=== PATIENT | female | born 1990 | race Caucasian/White ===

== ENCOUNTER 2016-06-10 12:36 | Emergency (ER) | payer BC, OTHER ==
[2016-06-10 12:46] VITALS: BP 115/78; PULSE 78; RESP 18; TEMP 97.8
[2016-06-10] MEDS ORDERED: HYDROcodone/APAP 5-325MG 1 EACH TAB PO STA (13:17)
--- NOTE | 2016-06-10 13:21 | ED ---
Fall HPI - General Chief Complaint: Fall Stated Complaint: fall Time Seen by Provider: 06/10/16 13:13 Source: patient, RN notes reviewed Mode of arrival: wheelchair - History of Present Illness Initial Comments: Patient is a 25-year-old female presents to the emergency room for evaluation of fall injury. Patient states last night she is taking a shower, slipped and fell and slammed her lower back against the side of the bathtub. Patient states she's having pain in her lower back that radiates to her right side. Patient states she has bruising at the area. Patient states the pain radiates down her leg. Patient denies numbness or tingling down her extremities. Patient denies saddle anesthesia. Patient denies urinary or fecal incontinence. Patient states she's been taking ibuprofen with little relief of symptoms. Patient states the pain is worse whenever she moves. - Related Data Home Medications Medication Instructions Recorded Confirmed Albuterol Inhaler [Ventolin 2 puff INHALATION Q4HR PRN 10/16/13 05/12/14 Inhaler] Ondansetron HCl [Zofran] 8 mg PO Q8HR PRN 10/16/13 05/12/14 Lansoprazole [Prevacid] 1 tab PO DAILY 11/26/13 05/12/14 Previous Rx's Medication Instructions Recorded HYDROcodone/APAP 5-325MG [[place] 1 tab PO Q6HR PRN #12 tab 06/10/16 5-325] Allergies Allergy/AdvReac Type Severity Reaction Status Date / Time azithromycin [From Zithromax] Allergy Dyspnea Verified 06/10/16 12:46 Review of Systems ROS Statement: Those systems with pertinent positive or pertinent negative responses have been documented in the HPI. ROS Other: All systems not noted in ROS Statement are negative. Past Medical History Past Medical History: No Reported History Additional Past Medical History / Comment(s): hyperemesis History of Any Multi-Drug Resistant Organisms: None Reported Past Surgical History: Appendectomy, Cholecystectomy, Tonsillectomy Past Anesthesia/Blood Transfusion Reactions: No Reported Reaction Past Psychological History: No Psychological Hx Reported Smoking Status: Never smoker Past Alcohol Use History: Occasional Past Drug Use History: None Reported General Exam - General Exam Comments Initial Comments: Laying in exam room, no acute distress. Limitations: no limitations General appearance: alert, in no apparent distress Head exam: Present: atraumatic, normocephalic, normal inspection Eye exam: Present: normal appearance ENT exam: Present: normal exam Neck exam: Present: normal inspection Respiratory exam: Present: normal lung sounds bilaterally. Absent: respiratory distress Cardiovascular Exam: Present: regular rate, normal rhythm, normal heart sounds Extremities exam: Present: normal inspection Back exam: Present: tenderness (Tenderness and bruising over her right side lower back), vertebral tenderness (Lumbosacral spine and coccyx bone.) Neurological exam: Present: alert, oriented X3, CN II-XII intact Psychiatric exam: Present: normal affect, normal mood Skin exam: Present: warm, dry, intact, normal color. Absent: rash Course Vital Signs 06/10/16 12:42 Temperature 97.8 F Pulse Rate 78 Respiratory 18 Rate Blood Pressure 115/78 O2 Sat by Pulse 98 Oximetry Medical Decision Making - Medical Decision Making Patient is a 25-year-old female presents emergency room for evaluation of fall injury. Patient complaining of right-sided low back pain and bruising. X-ray' s showed no acute findings. Patient was sent home with pain medications and advised to follow-up with primary care provider if symptoms are not improving in 7-10 days. Patient states she understands everything that was discussed with her. Return parameters discussed. Case discussed with Dr. Dunham. - Radiology Data Radiology results: report reviewed, image reviewed Disposition Clinical Impression: Fall, Contusion of lower back Disposition: HOME SELF-CARE Condition: Good Instructions: Acute Low Back Pain (ED) Additional Instructions: Ice on and off for 10-15 minutes for the next 24-48 hours. Take ibuprofen as needed for pain. Take [place] as needed for severe pain. Please follow-up with primary care provider symptoms are not improving in 7-10 days. If new symptoms develop or symptoms worsen, please return to the ER. Prescriptions: HYDROcodone/APAP 5-325MG [[place] 5-325] 1 tab PO Q6HR PRN #12 tab PRN Reason: Pain Referrals: Margi Tang MD [Primary Care Provider] - 1-2 days Time of Disposition: 14:05
--- NOTE | 2016-06-10 13:49 | XR ---
EXAMINATION TYPE: XR sacrum coccyx DATE OF EXAM ORDERED: 06/10/2016 1:34 PM HISTORY: Pain. COMPARISON: None. FINDINGS: A surgical clip projects over the left hemipelvis. No fracture, dislocation or other acute osseous lesion is seen. There are multiple phleboliths within the pelvis. IMPRESSION: NO ACUTE OSSEOUS LESION.
--- NOTE | 2016-06-10 13:50 | XR ---
EXAMINATION TYPE: XR lumbosacral spine min 4V DATE OF EXAM ORDERED: 06/10/2016 1:34 PM HISTORY: Pain. COMPARISON: None. FINDINGS: Vertebral body height and alignment are maintained. There is no spondylolysis or spondylol isthesis. There is no significant degenerative change. The facets are unremarkable. The pedicles are intact. Note is made of a previous cholecystectomy. IMPRESSION: NORMAL LUMBAR SPINE.
== END 2016-06-10 14:11 | disposition home or self-care (01) ==
LOC: EC 12:36
DX: S30.0XXA Contusion of lower back and pelvis, initial encounter (principal); Z79.899 Other long term (current) drug therapy; Z88.1 Allergy status to other antibiotic agents; W01.0XXA Fall on same level from slipping, tripping and stumbling without subsequent striking against object, initial encounter; Y92.009 Unspecified place in unspecified non-institutional (private) residence as the place of occurrence of the external cause
CPT/HCPCS: 72110; 72220; 99284

== ENCOUNTER 2016-08-09 10:08 | Emergency (ER) | payer OTHER ==
[2016-08-09 10:18] VITALS: RESP 20
--- NOTE | 2016-08-09 10:32 | ED ---
Lower Extremity Injury HPI - General Chief Complaint: Extremity Injury, Lower Stated Complaint: Foot Injury Time Seen by Provider: 08/09/16 10:19 Source: patient, RN notes reviewed Mode of arrival: wheelchair Limitations: no limitations - History of Present Illness Initial Comments: 25-year-old female presents to the emergency department with a chief complaint of right ankle pain. Patient stepped out of her car and rolled her right ankle. Patient states she walked around the park the rest of the day. Patient is smiling she woke up she had pain along the lateral aspect of the ankle. Patient states that she was concerned due to the pain so she thought that she should be evaluated. Patient states at rest the pain is bearable walking seems to make it worse. Patient denies any history of injury to this ankle in the past. Patient denies any recent fever, chills, shortness of breath, chest pain, back pain, abdominal pain, nausea vomiting, numbness or tingling, dysuria or hematuria, constipation or diarrhea, headaches or visual changes, or any other current symptoms. - Related Data Home Medications Medication Instructions Recorded Confirmed Albuterol Inhaler [Ventolin 2 puff INHALATION Q4HR PRN 10/16/13 08/09/16 Inhaler] Multivitamin/Iron/Folic Acid 1 tab PO DAILY 08/09/16 08/09/16 [[place] Tablet] Allergies Allergy/AdvReac Type Severity Reaction Status Date / Time azithromycin [From Zithromax] AdvReac Dyspnea Verified 08/09/16 10:35 Review of Systems ROS Statement: Those systems with pertinent positive or pertinent negative responses have been documented in the HPI. ROS Other: All systems not noted in ROS Statement are negative. Past Medical History Past Medical History: No Reported History Additional Past Medical History / Comment(s): hyperemesis History of Any Multi-Drug Resistant Organisms: None Reported Past Surgical History: Appendectomy, Cholecystectomy, Tonsillectomy Past Anesthesia/Blood Transfusion Reactions: No Reported Reaction Past Psychological History: No Psychological Hx Reported Smoking Status: Never smoker Past Alcohol Use History: Occasional Past Drug Use History: None Reported General Exam - General Exam Comments Initial Comments: General: The patient is awake and alert, in no distress, and does not appear acutely ill. Neck: The neck is supple, there is no tenderness. Cardiovascular: There is a regular rate and rhythm. No murmur, rub or gallop is appreciated. Respiratory: Lungs are clear to auscultation, respirations are non-labored, breath sounds are equal. No wheezes, stridor, rales, or rhonchi. Musculoskeletal: sensation intact. 2+ pulses throughout Right lower extremity. full Range of motion of right knee and right ankle. Patient does have some tenderness over the lateral aspect of the right ankle. 5 out of 5 muscle strength testing throughout. No proximal tib-fib tenderness. Neurological: CN II-XII intact, There are no obvious motor or sensory deficits. Coordination appears grossly intact. Speech is normal. Skin: Skin is warm and dry and no rashes or lesions are noted. Psychiatric: Normal mood and affect. Limitations: no limitations Course Vital Signs 08/09/16 10:15 Temperature 98 F Pulse Rate 82 Respiratory 20 Rate Blood Pressure 114/66 O2 Sat by Pulse 99 Oximetry Medical Decision Making - Medical Decision Making 25-year-old female presents emergency department chief complaint of right ankle sprain. This time patient will undergo a right ankle x-ray. This time x-rays reviewed and negative. This time we discussed Motrin Tylenol was discussed ice. We discussed return plan was on the patient's questions. They state Joseph they are in agreement plan. They will be discharged. - Radiology Data Radiology results: image reviewed Interpreted by me: Interpreted by me: Right ankle xray: 3 view, no fracture, no dislocation, no bony lesions, no foreign bodies, no soft tissue damage. Waiting official radiology read. Disposition Clinical Impression: Right ankle sprain Disposition: HOME SELF-CARE Condition: Stable Instructions: Ankle Sprain (ED) Additional Instructions: Please use medication as discussed. Please follow up with family doctor if symptoms have not improved over the next two days. Please return to the emergency room if your symptoms increase or worsen or for any other concerns. Referrals: Margi Tang MD [Primary Care Provider] - 1-2 days
--- NOTE | 2016-08-09 11:20 | XR ---
EXAMINATION TYPE: XR ankle complete RT DATE OF EXAM: 08/09/2016 COMPARISON: NONE HISTORY: Pain after trauma TECHNIQUE: 3 views FINDINGS: The mortise is intact. The bones and joints and soft tissues are unremarkable. IMPRESSION: Negative examination.
[2016-08-09 11:25] VITALS: BP 118/68; PULSE 78; TEMP 97.8
== END 2016-08-09 11:20 | disposition home or self-care (01) ==
LOC: EC 10:08
DX: S93.401A Sprain of unspecified ligament of right ankle, initial encounter (principal); Z88.1 Allergy status to other antibiotic agents; X50.1XXA Overexertion from prolonged static or awkward postures, initial encounter
CPT/HCPCS: 99283

== ENCOUNTER 2016-12-03 20:29 | Emergency (ER) | payer OTHER ==
--- NOTE | 2016-12-03 21:10 | ED ---
Abdominal Pain HPI - General Chief Complaint: Abdominal Pain Stated Complaint: vaginal bleeding/abdominal pain-11 wks preg Time Seen by Provider: 12/03/16 20:55 Source: patient Mode of arrival: ambulatory Limitations: no limitations - History of Present Illness Initial Comments: This patient is a 26-year-old woman who believes that she is about 11 weeks based from her last menstrual period. She states that since this morning she has had lower abdominal cramping and then a little later in the day started having some spotting. The pelvic cramping became more intense this evening to 3 hours ago. Patient denies fever or chills. She is not having chest pain, dyspnea, palpitations or syncope. She did feel lightheaded after standing earlier today. Patient denies any nausea or vomiting or any change in bowel movements. She has not had any urinary changes. There is no leg pain or swelling. MD Complaint: abdominal pain Onset/Timin -: days(s) Location: suprapubic Radiation: none Migration to: no migration Severity: moderate Quality: cramping Consistency: constant Improves With: nothing Worsens With: nothing - Related Data LMP Date: 09/19/16 LMP (females 10-50): 3 months Patient : Yes Home Medications Medication Instructions Recorded Confirmed Albuterol Inhaler [Ventolin 2 puff INHALATION Q4HR PRN 10/16/13 08/09/16 Inhaler] Multivitamin/Iron/Folic Acid 1 tab PO DAILY 08/09/16 08/09/16 [[place] Women Tablet] Previous Rx's Medication Instructions Recorded Amoxicillin 500 mg PO Q8H #21 capsule 12/03/16 Allergies Allergy/AdvReac Type Severity Reaction Status Date / Time azithromycin [From Zithromax] AdvReac Dyspnea Verified 12/03/16 20:44 Review of Systems ROS Statement: Those systems with pertinent positive or pertinent negative responses have been documented in the HPI. ROS Other: All systems not noted in ROS Statement are negative. Constitutional: Denies: fever, chills Eyes: Denies: vision change Respiratory: Denies: cough, dyspnea Cardiovascular: Denies: chest pain, palpitations, edema, syncope Gastrointestinal: Reports: as per HPI, abdominal pain. Denies: nausea, vomiting , diarrhea, constipation, melena, hematochezia Genitourinary: Reports: abnormal menses. Denies: dysuria, hematuria, discharge Musculoskeletal: Denies: back pain Skin: Denies: rash Neurological: Denies: headache, weakness, numbness Hematological/Lymphatic: Denies: easy bleeding Past Medical History Past Medical History: No Reported History Additional Past Medical History / Comment(s): hyperemesis History of Any Multi-Drug Resistant Organisms: None Reported Past Surgical History: Appendectomy, Cholecystectomy, Tonsillectomy Past Anesthesia/Blood Transfusion Reactions: No Reported Reaction Past Psychological History: No Psychological Hx Reported Smoking Status: Never smoker Past Alcohol Use History: Occasional Past Drug Use History: None Reported General Exam Limitations: no limitations General appearance: alert, in no apparent distress Head exam: Present: atraumatic, normocephalic Eye exam: Present: normal appearance. Absent: scleral icterus, conjunctival injection ENT exam: Present: normal oropharynx Neck exam: Present: normal inspection Respiratory exam: Present: normal lung sounds bilaterally. Absent: respiratory distress, wheezes, rales, rhonchi, stridor Cardiovascular Exam: Present: regular rate, normal rhythm, normal heart sounds GI/Abdominal exam: Present: soft. Absent: distended, tenderness, guarding, rebound, mass, pulsatile mass, hernia Extremities exam: Present: normal inspection, normal capillary refill. Absent: pedal edema, calf tenderness Back exam: Present: normal inspection. Absent: CVA tenderness (R), CVA tenderness (L) Neurological exam: Present: alert Skin exam: Present: warm, dry, intact, normal color. Absent: rash Course Vital Signs 12/03/16 12/03/16 20:42 22:50 Temperature 98.3 F 98.2 F Pulse Rate 87 79 Respiratory 20 16 Rate Blood Pressure 118/67 143/63 O2 Sat by Pulse 99 98 Oximetry Medical Decision Making - Lab Data Result diagrams: 12/03/16 21:24 Lab Results 12/03/16 12/03/16 12/03/16 Range/Units 21:05 21:05 21:24 WBC (3.8-10.6) k/uL RBC (3.80-5.40) m/uL Hgb (11.4-16.0) gm/dL Hct (34.0-46.0) % MCV (80.0-100.0) fL MCH (25.0-35.0) pg MCHC (31.0-37.0) g/dL RDW (11.5-15.5) % Plt Count (150-450) k/uL Neutrophils % % Lymphocytes % % Monocytes % % Eosinophils % % Basophils % % Neutrophils # (1.3-7.7) k/uL Lymphocytes # (1.0-4.8) k/uL Monocytes # (0-1.0) k/uL Eosinophils # (0-0.7) k/uL Basophils # (0-0.2) k/uL HCG, Quant mIU/mL Urine Color Yellow Urine Appearance Cloudy H (Clear) Urine pH 7.0 (5.0-8.0) Ur Specific [place] 1.015 (1.001-1.035) Urine Protein Negative (Negative) Urine Glucose (UA) Negative (Negative) Urine Ketones Negative (Negative) Urine Blood Negative (Negative) Urine Nitrite Negative (Negative) Urine Bilirubin Negative (Negative) Urine Urobilinogen <2.0 (<2.0) mg/dL Ur Leukocyte Esterase Trace H (Negative) Urine WBC 7 H (0-5) /hpf Ur Squamous Epith Cells 8 H (0-4) /hpf Amorphous Sediment Rare H (None) /hpf Urine Bacteria Rare H (None) /hpf Urine Mucus Rare H (None) /hpf Urine HCG, Qual Detected (Not Detectd) Blood Type A Negative Blood Type Recheck No 12/03/16 12/03/16 Range/Units 21:24 21:24 WBC 7.9 (3.8-10.6) k/uL RBC 3.70 L (3.80-5.40) m/uL Hgb 11.6 (11.4-16.0) gm/dL Hct 34.5 (34.0-46.0) % MCV 93.3 (80.0-100.0) fL MCH 31.2 (25.0-35.0) pg MCHC 33.5 (31.0-37.0) g/dL RDW 13.0 (11.5-15.5) % Plt Count 251 (150-450) k/uL Neutrophils % 68 % Lymphocytes % 24 % Monocytes % 6 % Eosinophils % 1 % Basophils % 0 % Neutrophils # 5.3 (1.3-7.7) k/uL Lymphocytes # 1.9 (1.0-4.8) k/uL Monocytes # 0.5 (0-1.0) k/uL Eosinophils # 0.1 (0-0.7) k/uL Basophils # 0.0 (0-0.2) k/uL HCG, Quant 915808.0 mIU/mL Urine Color Urine Appearance (Clear) Urine pH (5.0-8.0) Ur Specific [place] (1.001-1.035) Urine Protein (Negative) Urine Glucose (UA) (Negative) Urine Ketones (Negative) Urine Blood (Negative) Urine Nitrite (Negative) Urine Bilirubin (Negative) Urine Urobilinogen (<2.0) mg/dL Ur Leukocyte Esterase (Negative) Urine WBC (0-5) /hpf Ur Squamous Epith Cells (0-4) /hpf Amorphous Sediment (None) /hpf Urine Bacteria (None) /hpf Urine Mucus (None) /hpf Urine HCG, Qual (Not Detectd) Blood Type Blood Type Recheck Disposition Clinical Impression: Subchorionic hematoma in first trimester, Bacteriuria Disposition: HOME SELF-CARE Condition: Good Instructions: Subchorionic Hemorrhage (ED), Threatened Miscarriage (ED) Prescriptions: Amoxicillin 500 mg PO Q8H #21 capsule Referrals: Margi Tang MD [Primary Care Provider] - 1-2 days Nikunj Nielsen MD [STAFF PHYSICIAN] - 1-2 days
[2016-12-03 21:21] LABS: Amorphous Sediment,Urine Rare /hpf; Appearance,Urine Cloudy (Clear); Bacteria,Urine Rare /hpf; Bilirubin,Urine Negative (Negative); Glucose,Urine (UA) Negative (Negative); Ketones,Urine Negative (Negative); Leukocyte Esterase,Urine Trace (Negative); Mucus,Urine Rare /hpf; Nitrite,Urine Negative (Negative); Particle Count 1884; Protein,Urine Negative (Negative); Specific Gravity,Urine 1.015 (1.001-1.035); Squamous Epithelial Cell,Urine 8 /hpf (0-4); UA Billing (MACRO vs. MICRO) MICRO; Urobilinogen,Urine <2.0 mg/dL (<2.0); WBC,Urine 7 /hpf (0-5)
[2016-12-03 21:46] LABS: Basophils % (A) 0 %; CH 30.8; CHCM 33.1; Eosinophils # (A) 0.1 k/uL (0-0.7); Eosinophils % (A) 1 %; HCT 34.5 % (34.0-46.0); HDW 2.13; HGB 11.6 gm/dL (11.4-16.0); Luc # (Auto) 0.13; Luc % (Auto) 2; Lymphocytes # (A) 1.9 k/uL (1.0-4.8); Lymphocytes % (A) 24 %; MCH 31.2 pg (25.0-35.0); MCHC 33.5 g/dL (31.0-37.0); MCV 93.3 fL (80.0-100.0); Mean Platelet Volume 6.4; Monocytes # (A) 0.5 k/uL (0-1.0); Monocytes % (A) 6 %; Neutrophils # (A) 5.3 k/uL (1.3-7.7); Neutrophils % (A) 68 %; WBC 7.9 k/uL (3.8-10.6); WBC (Perox) 7.93
[2016-12-03] MEDS ORDERED: SODIUM CHLORIDE 0.9% 500 ML IV STA (22:50)
[2016-12-03 22:51] VITALS: BP 143/63; PULSE 79; RESP 16; TEMP 98.2
[2016-12-03] MEDS ORDERED: PYRIDOXINE 100 MG/ML 1 ML VIAL IVP STA (22:51)
--- NOTE | 2016-12-03 23:20 | US ---
US OB <= 14 wk fetus DATE OF EXAM: 12/03/2016 COMPARISON: NONE CLINICAL HISTORY: spotting with low abdominal cramping. . Date of LMP: 09/19/2016. Beta HcG (if available): detected EXAM PERFORMED: Transabdominal (TA) pelvic ultrasound was performed. FINDINGS: GESTATIONAL AGE / DATING Physician Established: Not yet established Dates by LMP: (10weeks/5 days) EDC: 06/26/2017 Dates by First Scan: No previous this is first scan Dates by Current Scan for: (10weeks/5 days) EDC: 06/26/2017 MATERNAL ANATOMY Uterus: Measures 15.4 x 8.3 x 9.7 cm. Anteverted. There appears to be hypoechoic area lateral to gest sac, measuring approximately 4.7 x 1.0 x 0.6 cm, possible moderate in size subchorionic hemorrhage versus implantation. Right Ovary: Measures 2.7 x 1.5 x 1.2 cm. Appears wnl Left Ovary: Measures 3.8 x 2.9 x 2.5 cm. Hypoechoic area with peripheral color flow noted measuring approximately 2.2 x 1.9 x 1.9 cm likely corpus luteal cyst Post CDS / Adnexa: Appears wnl Presence of free fluid: No GESTATION / SURVEY CRL: 3.85 cm (10weeks/5 days) Yolk Sac (normal less than 6mm): 0.3 cm Heart Rate: 161 bpm Rhythm: Normal IUP: Viable IUP IMPRESSION: Single IUP _10_ weeks _5_ days by measurements. heart tones _161_ bpm. Hypoechoic area lateral to gest sac, measuring approximately 4.7 x 1.0 x 0.6 cm, possible moderate in size subchorionic hemorrhage versus implantation. Serial trending beta hCG values along with short-term interval obstetrical ultrasound is recommended for follow-up.
== END 2016-12-03 23:43 | disposition home or self-care (01) ==
LOC: EC 20:29
DX: O20.9 Hemorrhage in early pregnancy, unspecified (principal); O99.89 Other specified diseases and conditions complicating pregnancy, childbirth and the puerperium; R82.71 Bacteriuria; Z3A.11 11 weeks gestation of pregnancy; Z90.49 Acquired absence of other specified parts of digestive tract; Z88.1 Allergy status to other antibiotic agents; Z79.899 Other long term (current) drug therapy
CPT/HCPCS: 99284 ×2; 96374 ×2; 36415; 86900; 86901; 85025; 81001; 81025; 84702; 76801; J3415

== ENCOUNTER 2017-02-16 03:51 | Outpatient (CLI) | payer OTHER ==
[2017-02-16] MEDS ORDERED: ONDANSETRON 4 MG/2 ML VIAL IVP PRN (04:10)
[2017-02-16] MEDS ORDERED: LACTATED RINGERS 1,000 ML IV SCH ×2 (04:15)
[2017-02-16 04:24] LABS: Basophils % (A) 0 %; Eosinophils % (A) 1 %; HCT 36.8 % (34.0-46.0); HGB 12.2 gm/dL (11.4-16.0); Lymphocytes # (A) 0.4 k/uL (1.0-4.8); Lymphocytes % (A) 5 %; MCH 30.3 pg (25.0-35.0); MCHC 33.1 g/dL (31.0-37.0); MCV 91.5 fL (80.0-100.0); Mean Platelet Volume 6.6; Monocytes # (A) 0.4 k/uL (0-1.0); Monocytes % (A) 4 %; Neutrophils # (A) 7.2 k/uL (1.3-7.7); Neutrophils % (A) 89 %; Platelet Count 205 k/uL (150-450); RBC 4.02 m/uL (3.80-5.40); RDW 13.2 % (11.5-15.5); WBC 8.1 k/uL (3.8-10.6)
[2017-02-16 04:27] VITALS: BP 121/68; PULSE 102; RESP 16; TEMP 98.1
[2017-02-16 04:35] LABS: Appearance,Urine Turbid (Clear); Bilirubin,Urine Negative (Negative); Blood,Urine Negative (Negative); Color,Urine Dark Yellow; Glucose,Urine (UA) Trace (Negative); Ketones,Urine 1+ (Negative); Leukocyte Esterase,Urine Moderate (Negative); Mucus,Urine Many /hpf; Nitrite,Urine Negative (Negative); Protein,Urine 2+ (Negative); RBC,Urine 4 /hpf (0-5); Specific Gravity,Urine 1.025 (1.001-1.035); Squamous Epithelial Cell,Urine 16 /hpf (0-4); Urobilinogen,Urine <2.0 mg/dL (<2.0); WBC,Urine 9 /hpf (0-5)
--- NOTE | 2017-03-05 11:22 | P.MSEPDOC ---
Presenting Problems - Arrival Data Date of Arrival on Unit: 02/16/17 Time of Arrival on Unit: 03:51 Mode of Transport: Wheelchair - Complaint OB-Reason for Admission/Chief Complaint: Acute Nausea/Vomiting Medical History - Information : 6 Para: 3 Term: 2 : 1 Abortions: Spontaneous or Elective: 2 Number of Living Children: 3 - Gestational Age Gestational Age by KEI (wks/days): 21 Weeks and 3 Days Review of Systems - Review of Systems Constitutional: No problems Breast: No problems ENT: No problems Cardiovascular: No problems Respiratory: No problems Gastrointestinal: Diarrhea Genitourinary: No problems Musculoskeletal: No problems Neurological: No problems Skin: No problems Comment: n/v/d abd pain Vital Signs - Temperature Temperature: 98.1 F Temperature Source: Temporal Artery Scan - Pulse Right Pulse Rate: 102 Pulse Assessment Method: Pulse Oximetry - Respirations Respiratory Rate: 16 O2 Sat by Pulse Oximetry: 97 - Blood Pressure Right Arm Blood Pressure: 121/68 Blood Pressure Mean: 85 Blood Pressure Source: Automatic Cuff Medical Screen Scoring (Pre) - Cervical Exam Dilation: Exam Deferred Effacement: Exam Deferred - Uterine Contractions Frequency: N/A Duration: N/A Intensity: N/A - Maternal Vital Signs Maternal Temperature: N/A Maternal Blood Pressure: N/A Signs of Preeclampsia: N/A Maternal Respirations: N/A - Total Score Total Score (Pre): 0 - Level of Risk Level of Risk: N/A Physician Notification (Pre) - Physician Notified Physician Notified Date: 02/16/17 Physician Notified Time: 04:09 Physician/Practitioner Notifed:: Dr Tuttle - Notification Comment Comment: orders for UA, CBC, IV bolus x2L, zofran. if better and labs are ok, pt may be d/c'd home Medical Screen Scoring (Post) - Cervical Exam Dilation: Exam Deferred Effacement: Exam Deferred - Uterine Contractions Frequency: N/A Duration: N/A Intensity: N/A - Maternal Vital Signs Maternal Temperature: N/A Signs of Preeclampsia: N/A - Maternal Trauma Maternal Trauma: N/A - Total Score Total Score (Post): 0 - Post Treatment Level of Risk Post Treatment Level of Risk: N/A Physician Notification (Post) - Physician Notified Physician Notified Date: 12/21/17 Physician Notified Time: 04:41 Physician/Practitioner Notified:: Dr Tuttle - Notification Comment Comment: reported on labs. orders to continue with fluids, give 2nd bag. pt may go home when feeling better. Disposition - Disposition OB Disposition: Discharge to home Discharge Date: 02/16/17 Discharge Time: 05:54 I agree with the RN Medical Screening Exam: Yes Risk & Benefit of care provided described in d/c instruction: Yes Diagnosis: VOMITING OF , UNSPECIFIED
== END 2017-02-16 05:56 | disposition home or self-care (01) ==
LOC: FBPOP 03:51
PROVIDERS: ATTEND Obstetrics & Gynecology
DX: O21.9 Vomiting of pregnancy, unspecified (principal); Z3A.21 21 weeks gestation of pregnancy
CPT/HCPCS: 99213; 96361; 96374; 85025; 81001; J2405

== ENCOUNTER 2017-03-24 03:55 | Outpatient (CLI) | payer OTHER ==
[2017-03-24 04:26] VITALS: BP 131/62; PULSE 87; RESP 16; TEMP 97.2
[2017-03-24 05:00] LABS: Amorphous Sediment,Urine Occasional /hpf; Appearance,Urine Cloudy (Clear); Bacteria,Urine Occasional /hpf; Bilirubin,Urine Negative (Negative); Blood,Urine Negative (Negative); Color,Urine Yellow; Glucose,Urine (UA) Negative (Negative); Ketones,Urine Trace (Negative); Leukocyte Esterase,Urine Moderate (Negative); Mucus,Urine Many /hpf; Nitrite,Urine Negative (Negative); Protein,Urine 1+ (Negative); RBC,Urine 1 /hpf (0-5); Specific Gravity,Urine 1.026 (1.001-1.035); Squamous Epithelial Cell,Urine 20 /hpf (0-4); Urobilinogen,Urine <2.0 mg/dL (<2.0); WBC,Urine 41 /hpf (0-5)
[2017-03-24] MEDS ORDERED: ONDANSETRON 4 MG/2 ML VIAL IVP STA (05:06)
[2017-03-24] MEDS ORDERED: LACTATED RINGERS 1,000 ML IV SCH (05:15)
--- NOTE | 2017-03-24 08:32 | P.MSEPDOC ---
Presenting Problems - Arrival Data Date of Arrival on Unit: 03/24/17 Time of Arrival on Unit: 04:00 Mode of Transport: Wheelchair - Complaint OB-Reason for Admission/Chief Complaint: Acute Nausea/Vomiting Comment: pt states she has vomited 3 times since 0100. Medical History - Information : 6 Para: 3 Term: 2 : 1 Abortions: Spontaneous or Elective: 2 Number of Living Children: 3 - Gestational Age Gestational Age by KEI (wks/days): 26 Weeks and 4 Days Review of Systems - Review of Systems Constitutional: No problems Breast: No problems ENT: No problems Cardiovascular: No problems Respiratory: No problems Gastrointestinal: No problems Genitourinary: No problems Musculoskeletal: No problems Neurological: Dizziness Skin: No problems Vital Signs - Temperature Temperature: 97.2 F Temperature Source: Temporal Artery Scan - Pulse Right Sitting Brachial Pulse Rate: 87 Pulse Assessment Method: Automatic Cuff - Respirations Respiratory Rate: 16 Oxygen Delivery Method: Room Air - Blood Pressure Right Arm Sitting Blood Pressure: 131/62 Blood Pressure Mean: 85 Blood Pressure Source: Automatic Cuff Medical Screen Scoring (Pre) - Cervical Exam Dilation: Exam Deferred Effacement: Exam Deferred Membranes: Intact - Uterine Contractions Frequency: N/A Duration: N/A Intensity: N/A - Maternal Vital Signs Maternal Temperature: N/A Maternal Blood Pressure: N/A Signs of Preeclampsia: N/A Maternal Respirations: N/A - Pain Assessment Pain Location and Character: Abdomen Pain Scale Used: Numeric (1 - 10) Pain Intensity: 5 Pain Management Goal: 2 Pain Description: *Acute, Cramping Pain Radiation Location: n/a Pain Frequency: Intermittent Pain Duration: 1.5 Pain Duration Units: Days Pain Behavior: Vocalization - Assessment Baseline FHR: 135 Heart Rate - NICHD Category: Category I (Normal) = 0 Position: N/A Station: N/A - Total Score Total Score (Pre): 0 - Level of Risk Level of Risk: Low (0-5) Physician Notification (Post) - Physician Notified Physician Notified Date: 03/24/17 Physician Notified Time: 04:37 Physician/Practitioner Notified:: dr loco Spoke With: dr loco New Order Received: Yes - Notification Comment Comment: If ketones present in urine, give 1L bolus of LR and zofran PRN for nausea. Disposition - Disposition OB Disposition: Discharge to home Discharge Date: 03/24/17 Discharge Time: 05:55 I agree with the RN Medical Screening Exam: Yes Risk & Benefit of care provided described in d/c instruction: Yes Diagnosis: VOMITING OF , UNSPECIFIED
== END 2017-03-24 05:55 | disposition home or self-care (01) ==
LOC: FBPOP 03:55
PROVIDERS: ATTEND Obstetrics & Gynecology
DX: O21.2 Late vomiting of pregnancy (principal); Z3A.26 26 weeks gestation of pregnancy
CPT/HCPCS: 99214; 96374; 96375; 81001; J2405

== ENCOUNTER 2017-06-21 06:30 | Inpatient (IN) | payer OTHER ==
[2017-06-21] MEDS ORDERED: CARBOPROST TROMETHAMINE 250 MCG/ML 1 ML AMP IM PRN (06:57)
[2017-06-21] MEDS ORDERED: LIDOCAINE 1% (PF) 10 MG/ML (30 ML SDV) SQ PRN (06:57)
[2017-06-21] MEDS ORDERED: TERBUTALINE 1 MG/ML VIAL SQ PRN (06:57)
[2017-06-21] MEDS ORDERED: OXYTOCIN 10 UNIT/ML 1 ML VIAL IM PRN (06:57)
[2017-06-21] MEDS ORDERED: METHYLERGONOVINE 0.2 MG/ML 1 ML AMP IM PRN (06:57)
[2017-06-21] MEDS ORDERED: OXYTOCIN 20 UNITS/1000 ML NS 1,000 ML IV SCH (07:00)
[2017-06-21] MEDS: LACTATED RINGERS 1,000 ML IV SCH ×2 (07:14→10:58)
[2017-06-21 07:19] LABS: Basophils % (A) 0 %; Eosinophils # (A) 0.1 k/uL (0-0.7); Eosinophils % (A) 1 %; Lymphocytes # (A) 1.3 k/uL (1.0-4.8); Lymphocytes % (A) 20 %; MCH 28.4 pg (25.0-35.0); MCHC 32.3 g/dL (31.0-37.0); MCV 87.9 fL (80.0-100.0); Mean Platelet Volume 7.1; Monocytes # (A) 0.5 k/uL (0-1.0); Monocytes % (A) 8 %; Neutrophils # (A) 4.3 k/uL (1.3-7.7); Neutrophils % (A) 68 %; Platelet Count 229 k/uL (150-450); RBC 3.87 m/uL (3.80-5.40); RDW 14.6 % (11.5-15.5); WBC 6.3 k/uL (3.8-10.6)
[2017-06-21 07:42] VITALS: BMI 29.6
[2017-06-21] MEDS ORDERED: fentaNYL (PF) 50 MCG/ML 5 ML AMP ONE (10:44)
[2017-06-21] MEDS ORDERED: SODIUM CHLORIDE 0.9% 100 ML BAG ONE (10:44)
[2017-06-21] MEDS ORDERED: BUPIVACAINE (PF) 0.25% 30 ML VIAL ONE (10:44)
[2017-06-21] MEDS ORDERED: BUPIVACAINE (PF) 0.25% 25 ML, fentaNYL (PF) 200 MCG in SODIUM CHLORIDE 0.9% 71 ML EPIDURAL ONE (10:56)
[2017-06-21] MEDS ORDERED: diphenhydrAMINE 50 MG CAP PO PRN (14:43)
[2017-06-21] MEDS ORDERED: MEASLES-MUMPS-RUBELLA VACC/PF 12,500 UNIT/0.5 ML VIAL SQ ONE (14:43)
[2017-06-21] MEDS ORDERED: ZOLPIDEM 5 MG TAB PO PRN (14:43)
[2017-06-21] MEDS ORDERED: ACETAMINOPHEN TAB 325 MG TAB PO PRN (14:43)
[2017-06-21] MEDS ORDERED: diphenhydrAMINE 25 MG CAP PO PRN (14:43)
[2017-06-21] MEDS ORDERED: diphenhydrAMINE 50 MG/ML 1 ML VIAL IVP PRN ×2 (14:43)
[2017-06-21] MEDS ORDERED: SIMETHICONE 80 MG CHEWABLE PO PRN (14:43)
--- NOTE | 2017-06-21 17:27 | P.HPOB ---
History of Present Illness H&P Date: 06/21/17 Chief Complaint: Into uterine at term: Induction of labor Nahomy is a 26-year-old at 39 weeks gestation who arrives for induction of labor. Her course was,. By minimal care. From approximately 17 weeks to 34 weeks she did not see any physician. However she was seen weekly from 34 weeks until delivery. Otherwise she had no problems or complaints with the . Pertinent labs do include A- blood type Rh and it was negative, rubella immune, hepatitis B surface antigen and RPR were both negative. Past Medical History Past Medical History: Asthma Additional Past Medical History / Comment(s): hyperemesis History of Any Multi-Drug Resistant Organisms: None Reported Past Surgical History: Appendectomy, Cholecystectomy, Tonsillectomy Past Anesthesia/Blood Transfusion Reactions: No Reported Reaction Past Psychological History: Anxiety, Depression Smoking Status: Never smoker Past Alcohol Use History: None Reported Past Drug Use History: None Reported - Past Family History Mother Family Medical History: Cancer, Hypertension Additional Family Medical History / Comment(s): brain cancer, bipolar, alcoholism Father Family Medical History: Hypertension Medications and Allergies Home Medications Medication Instructions Recorded Confirmed Type Albuterol Inhaler [Ventolin 2 puff INHALATION Q4HR PRN 10/16/13 06/21/17 History Inhaler] Multivitamin/Iron/Folic Acid 1 tab PO DAILY 08/09/16 06/21/17 History [Centrum Women Tablet] Ondansetron [Zofran] 4 mg PO Q6HR PRN 06/21/17 06/21/17 History Allergies Allergy/AdvReac Type Severity Reaction Status Date / Time azithromycin [From Zithromax] AdvReac Dyspnea Verified 06/21/17 06:55 Exam Osteopathic Statement: *. No significant issues noted on an osteopathic structural exam other than those noted in the History and Physical/Consult. - Vital Signs Vital signs: Vital Signs Temp Pulse Resp BP 06/21/17 16:00 98.1 F 80 16 128/64 06/21/17 15:53 98.2 F 74 16 128/81 06/21/17 15:23 98.1 F 74 16 120/67 06/21/17 14:53 97.7 F 71 16 119/73 06/21/17 14:38 72 16 114/71 06/21/17 14:23 71 16 114/63 06/21/17 14:08 97.3 F L 72 16 129/72 06/21/17 13:53 81 16 133/76 06/21/17 07:31 97.5 F L 79 16 135/75 Intake and Output 06/21/17 06/21/17 06/21/17 06:59 14:59 22:59 Intake Total 250 Balance 250 Intake: Oral 250 Other: # Voids 1 Weight 88.451 kg 88.451 kg - OBG Physical Exam Breast: both: normal (no masses) Abdomen: bowel sounds normal, no diffuse tenderness, no bruit present, no guarding noted, no hepatomegaly, no splenomegaly, no mass Vulva: both: normal Vagina: normal moisture, no discharge Cervix: Dilated to approximately 2 cm 7% effaced -2 station. Artificial rupture membranes was performed and clear fluid is noted. heart tones 140s and reactive. Cervix: no lesion, no discharge Uterus: normal size, normal contour Adnexa: both: normal Anus/Rectum: normal perianal skin, no rectal mass, no hemorrhoids, heme negative Results Result Diagrams: 06/21/17 06:55 Abnormal Lab Results - Last 24 Hours (Table) 06/21/17 Range/Units 06:55 Hgb 11.0 L (11.4-16.0) gm/dL
--- NOTE | 2017-06-21 17:28 | P.PROBDLV ---
Vaginal Delivery Note - . Vaginal Delivery Note: Patient progressed to complete and pushing with spontaneous vaginal delivery of a viable female over an intact perineum. Falling deliver the head anterior posterior shoulders were delivered with gentle downward and upward traction followed by the remainder the baby. Mouth and nares were then bulb suctioned and baby was placed on mother's abdomen where the umbilical cord was allowed to pulsate for 30 seconds prior to clamping and cutting. Cord blood was then collected and nursery personnel was present to assume care. Placenta was then delivered intact Pitocin was added to the IV. Apgars and weight are on the chart and both mother and baby appear stable following delivery.
[2017-06-21] MEDS: SENNOSIDES-DOCUSATE SODIUM 1 EACH TAB PO SCH (19:33)
[2017-06-21] MEDS: IBUPROFEN 600 MG TAB PO PRN (19:33)
[2017-06-21] MEDS ORDERED: Rhogam IMMUNE GLOBULIN 1,500 UNIT/1 ML IM ONE (23:19)
[2017-06-22] MEDS: IBUPROFEN 600 MG TAB PO PRN (06:12)
--- NOTE | 2017-06-22 06:50 | P.DS ---
Providers Date of admission: 06/21/17 06:47 Expected date of discharge: 06/22/17 Attending physician: Isaac Mesa Primary care physician: Stated None Hospital Course: José Luis is doing very well day 1. She is involuting, voiding, and she is tolerating her diet. She voices no complaints. Vital signs are stable and afebrile. Heart regular, lungs clear, extremities without pain. Abdomen is soft and nontender. Positive bowel sounds are noted. Uterus is firm and lochia is reported be light. A prescription for Motrin has been for into her pharmacy. Discharge instructions thoroughly reviewed. She will follow up with me in 6 weeks. Assessment day 1. Plan discharged home follow up in 6 weeks. Patient Condition at Discharge: Good Plan - Discharge Summary New Discharge Prescriptions: New Ibuprofen [Motrin] 600 mg PO Q6HR PRN #30 tab PRN Reason: Pain No Action Albuterol Inhaler [Ventolin Inhaler] 2 puff INHALATION Q4HR PRN PRN Reason: Shortness Of Breath Multivitamin/Iron/Folic Acid [Centrum Women Tablet] 1 tab PO DAILY Ondansetron [Zofran] 4 mg PO Q6HR PRN PRN Reason: Nausea Discharge Medication List Albuterol Inhaler [Ventolin Inhaler] 2 puff INHALATION Q4HR PRN 10/16/13 [ History] Multivitamin/Iron/Folic Acid [Centrum Women Tablet] 1 tab PO DAILY 08/09/16 [ History] Ondansetron [Zofran] 4 mg PO Q6HR PRN 06/21/17 [History] Ibuprofen [Motrin] 600 mg PO Q6HR PRN #30 tab 06/22/17 [Rx] Follow up Appointment(s)/Referral(s): Isaac Mesa DO [Doctor of Osteopathic Medicine] - 6 Weeks Activity/Diet/Wound Care/Special Instructions: No heavy lifting, limit stairs and driving, and pelvic rest. If any high temperatures, heavy bleeding, or severe pain call my office Discharge Disposition: HOME SELF-CARE
[2017-06-22 07:33] LABS: Basophils % (A) 0 %; Eosinophils # (A) 0.1 k/uL (0-0.7); Eosinophils % (A) 1 %; HCT 33.9 % (34.0-46.0); HGB 10.8 gm/dL (11.4-16.0); Lymphocytes # (A) 1.2 k/uL (1.0-4.8); Lymphocytes % (A) 11 %; MCH 28.1 pg (25.0-35.0); MCHC 31.8 g/dL (31.0-37.0); MCV 88.5 fL (80.0-100.0); Mean Platelet Volume 7.1; Monocytes # (A) 0.7 k/uL (0-1.0); Monocytes % (A) 6 %; Neutrophils # (A) 8.2 k/uL (1.3-7.7); Neutrophils % (A) 80 %; Platelet Count 194 k/uL (150-450); RBC 3.83 m/uL (3.80-5.40); RDW 14.5 % (11.5-15.5); WBC 10.2 k/uL (3.8-10.6)
[2017-06-22 10:48] VITALS: BP 136/79; PULSE 79; RESP 18; TEMP 98.6
[2017-06-22] MEDS: SENNOSIDES-DOCUSATE SODIUM 1 EACH TAB PO SCH (10:50)
== END 2017-06-22 15:14 | disposition home or self-care (01) | DRG 775 ==
LOC: 4FBP 06:47
PROVIDERS: ADMIT Obstetrics & Gynecology; ATTEND Obstetrics & Gynecology
PROC: 10907ZC Drainage of Amniotic Fluid, Therapeutic from Products of Conception, Via Natural or Artificial Opening (ICD-10-PCS; principal; 2017-06-21)
PROC: 00HU33Z Insertion of Infusion Device into Spinal Canal, Percutaneous Approach (ICD-10-PCS; principal; 2017-06-21)
PROC: 10E0XZZ Delivery of Products of Conception, External Approach (ICD-10-PCS; principal; 2017-06-21)
PROC: 3E0R3NZ Introduction of Analgesics, Hypnotics, Sedatives into Spinal Canal, Percutaneous Approach (ICD-10-PCS; principal; 2017-06-21)
PROC: 3E033VJ Introduction of Other Hormone into Peripheral Vein, Percutaneous Approach (ICD-10-PCS; principal; 2017-06-21)
DX: O99.513 Diseases of the respiratory system complicating pregnancy, third trimester (principal); J45.909 Unspecified asthma, uncomplicated; Z37.0 Single live birth; O99.62 Diseases of the digestive system complicating childbirth; R11.10 Vomiting, unspecified; Z3A.39 39 weeks gestation of pregnancy; Z79.899 Other long term (current) drug therapy; Z90.49 Acquired absence of other specified parts of digestive tract; Z98.890 Other specified postprocedural states; Z88.1 Allergy status to other antibiotic agents
CPT/HCPCS: 85025; 85461; 88307

== ENCOUNTER → 2020-05-12 | Outpatient (CLI) | payer BC ==
[2020-05-12 19:48] LABS: Basophils # (A) 0.06 X 10*3/uL (0.00-0.10); Basophils % (A) 0.9 %; Eosinophils # (A) 0.45 X 10*3/uL (0.04-0.35); Eosinophils % (A) 6.5 %; HCT 42.9 % (37.2-46.3); HGB 13.6 g/dL (12.0-15.0); Lymphocytes # (A) 2.02 X 10*3/uL (0.90-5.00); Lymphocytes % (A) 29.2 %; MCH 30.2 pg (27.0-32.0); MCHC 31.7 g/dL (32.0-37.0); MCV 95.1 fL (80.0-97.0); Mean Platelet Volume 9.2 fL (9.5-12.2); Monocytes # (A) 0.46 X 10*3/uL (0.20-1.00); Monocytes % (A) 6.7 %; Neutrophils % (A) 56.4 %; Platelet Count 349 X 10*3/uL (140-440); RBC 4.51 X 10*6/uL (4.10-5.20); RDW 12.2 % (11.5-14.5); WBC 6.91 X 10*3/uL (4.50-10.00)
[2020-05-12 21:01] LABS: T4, Free (Free Thyroxine) 1.3 ng/dL (0.80-1.80); Thyroid Peroxidase Antibodies 32.6 U/mL (0.0-60.0)
[2020-05-12 21:45] LABS: Hemoglobin A1C 5.4 % (4.0-6.0)
[2020-05-12 22:12] LABS: African American GFR (CKD) 113.9 (60.0-200.0); Albumin 4.9 g/dL (3.80-4.90); Albumin/Globulin Ratio 2.58 (1.60-3.17); Anion Gap 10.7 mmol/L (4.00-12.00); BUN/Creat Ratio 16.25 Ratio (12.00-20.00); Calcium 9.7 mg/dL (8.7-10.3); Carbon Dioxide 24.3 mmol/L (21.6-31.8); Globulin 1.9 g/dL (1.6-3.3); Non-African American GFR(CKD) 98.2 (60.0-200.0); Potassium 4.8 mmol/L (3.5-5.5); Total Bilirubin 0.2 mg/dL (0.3-1.2); Total Protein 6.8 g/dL (6.2-8.2)
== END | disposition home or self-care (01) ==
LOC: LABWHC1 11:19
PROVIDERS: ATTEND Internal Medicine
DX: R53.83 Other fatigue (principal); R35.8 Other polyuria; R63.5 Abnormal weight gain
CPT/HCPCS: 36415; 80053; 83036; 84439; 84443; 84481; 85025; 86376; 86800